=== PATIENT | male | born 1960 | race Caucasian/White ===

== ENCOUNTER 2016-06-12 13:54 | Emergency (ER) | payer BC ==
[2016-06-12] MEDS ORDERED: IBUPROFEN 400 MG TABLET PO ONE (14:44)
[2016-06-12] MEDS ORDERED: ACETAMINOPHEN 500 MG TABLET PO ONE (14:44)
--- NOTE | 2016-06-12 14:48 | Emergency Department Record ---
History of Present Illness - General Chief Complaint: Fever Stated Complaint: FEVER Time Seen by Provider: 06/12/16 14:44 Source: Patient Mode of Arrival: Ambulatory Limitations: No limitations - History of Present Illness Initial Comments: 56 yo male presents to ED with a CC of sore throat and fever symptoms associated with body aches and headache symptoms. Patient denies difficulty breathing, abdominal pain, nausea, vomiting, or neck pain symptoms. Patient denies urinary symptoms. Patient denies health problems at his baseline. MD Complaint: Fever Onset/Timin -: Days(s) Temperature Source: Oral Associated Symptoms: Myalgias, Sore throat Treatments Prior to Arrival: Other (excedrin) - Related Data Home Medications Medication Instructions Recorded Confirmed Last Taken Aspirin [Aspir 81] 81 mg PO QD tab 09/18/15 06/12/16 1 Day Ago Fenofibrate Nanocrystallized 145 mg PO QD tab 09/18/15 06/12/16 1 Day Ago [Tricor] Fluticasone Propionate 16 gm NS DAILY 09/18/15 06/12/16 1 Day Ago Lisinopril [Zestril] 20 mg PO QD tab 09/18/15 06/12/16 1 Day Ago Omeprazole 20 mg PO QD cap 09/18/15 06/12/16 1 Day Ago Atorvastatin Calcium [Lipitor] 20 mg PO DAILY 06/12/16 06/12/16 1 Day Ago Ergocalciferol (Vitamin D2) 50,000 unit PO WEEKLY 06/12/16 06/12/16 1 Day Ago [Vitamin D2] Krill/Om-3/Dha/Epa/Phospho/Ast 1 each PO DAILY 06/12/16 06/12/16 1 Day Ago [Megared [place]-3 Krill Oil Sfgl] Multivitamin [Daily Multiple 1 each PO DAILY 06/12/16 06/12/16 1 Day Ago Vitamin] Previous Rx's Medication Instructions Recorded Amoxicillin [Amoxil] 500 mg PO TID #30 tab 06/12/16 Allergies Allergy/AdvReac Type Severity Reaction Status Date / Time cefadroxil hydrate Allergy Intermediate RASH Verified 06/12/16 14:43 [From [facility]] Travel Screening - Travel/Exposure Within Last 30 Days Have you traveled within the last 30 days?: No - Travel/Exposure Within Last Year Have you traveled outside the [place] in the last year?: No - Additonal Travel Details Have you been exposed to anyone with a communicable illness?: No - Travel Symptoms Symptom Screening: None Review of Systems Constitutional: Reports: Fever, Malaise. Denies: Chills, Night sweats, Weakness Eyes: Denies: Eye discharge, Eye pain ENT: Reports: Throat pain. Denies: Congestion, Ear pain, Epistaxis Respiratory: Denies: Cough, Dyspnea Cardiovascular: Denies: Chest pain, Dyspnea on exertion Endocrine: Denies: Fatigue, Heat or cold intolerance Gastrointestinal: Denies: Abdominal pain, Nausea, Vomiting Genitourinary: Denies: Hematuria, Incontinence, Retention Musculoskeletal: Reports: Myalgia. Denies: Arthralgia, Back pain, Gout, Joint swelling Skin: Denies: Bruising, Change in color Neurological: Reports: Headache. Denies: Abnormal gait, Confusion, Seizure Psychiatric: Denies: Anxiety Hematological/Lymphatic: Reports: Blood Clots. 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 - NEURO Comment:: born deaf, 90% - GI Hx GI Disorders: No - Hx Genitourinary Disorders: No - ENDOCRINE Hx Diabetes: No Hx Thyroid Disease: No - MUSCULOSKELETAL Hx Musculoskeletal Disorders: No - PSYCH Hx Psych Problems: No - HEMATOLOGY/ONCOLOGY Hx Hematology/Oncology Disorders: Yes Family Medical History Any Significant Family History?: Yes Physical Exam - General General Appearance: Alert, Oriented x3, Cooperative, No acute distress, Other ( well appearing on examination) Limitations: No limitations - Head Head exam: Atraumatic, Normocephalic, Normal inspection Head exam detail: negative: Abrasion, Contusion, Walker's sign, General tenderness, Hematoma, Laceration - Eye Eye exam: Normal appearance. negative: Conjunctival injection, Periorbital swelling, Periorbital tenderness, Scleral icterus - ENT Ear exam: negative: Auricular hematoma, Auricular trauma Nasal Exam: negative: Active bleeding, Discharge, Dried blood Mouth exam: negative: Drooling, Laceration, Muffled voice, Tongue elevation Throat exam: Tonsillar erythema. negative: Tonsillomegaly, Tonsillar exudate, R peritonsillar mass, L peritonsillar mass - Neck Neck exam: Normal inspection. negative: Lymphadenopathy, Meningismus - Respiratory Respiratory exam: Normal lung sounds bilaterally. negative: Rales, Respiratory distress, Rhonchi, Stridor - Cardiovascular Cardiovascular Exam: Normal rhythm, Normal heart sounds, Tachycardia - GI/Abdominal GI/Abdominal exam: Soft. negative: Rebound, Rigid, Tenderness - Rectal Rectal exam: Deferred - exam: Deferred - Extremities Extremities exam: Normal inspection. negative: Calf tenderness, Pedal edema, Tenderness - Back Back exam: Denies: CVA tenderness (R), CVA tenderness (L) - Neurological Neurological exam: Alert, Normal gait, Oriented X3 - Psychiatric Psychiatric exam: Normal affect, Normal mood - Skin Skin exam: Normal color. negative: Abrasion Type of lesion: negative: abrasion Course Vital Signs 06/12/16 14:26 Temperature 102.6 F H Pulse Rate [ 116 H Pulse Ox Probe] Respiratory 14 Rate Blood Pressure 164/114 [Left Arm] Pulse Ox 93 L - Reevaluation(s) Reevaluation #1: 06/12/16 15:23 Influenza negative. Strep positive. Reevaluation #2: 06/12/16 16:17 CXR negative. Repeat temperature is down to 98.7, pulse 104, biox 95% RA. Patient was started on amoxicillin for his pharyngitis, and appears stable for discharge at this time. 06/12/16 16:17 Disposition Disposition: Discharge Clinical Impression: Strep pharyngitis Disposition: Home, Self-Care Condition: (2) Stable Instructions: Fever in Adults (ED), Strep Throat (ED) Additional Instructions: Return to ED if your symptoms worsen or if you have any concerns. Amoxicillin as directed. Follow-up with your family doctor in 3-5 days as directed. Prescriptions: Amoxicillin [Amoxil] 500 mg PO TID #30 tab Forms: Patient Portal Access Time of Disposition: 16:18
[2016-06-12 14:49] LABS: STREP A SCREEN POSITIVE (NEGATIVE)
[2016-06-12 15:01] LABS: INFLUENZA A NEGATIVE (NEGATIVE); INFLUENZA B NEGATIVE (NEGATIVE)
[2016-06-12] MEDS ORDERED: AMOXICILLIN 500 MG TABLET PO ONE (15:24)
== END 2016-06-12 16:24 | disposition home or self-care (01) ==
LOC: ER 13:54
DX: J02.0 Streptococcal pharyngitis (principal); R50.81 Fever presenting with conditions classified elsewhere
CPT/HCPCS: 71020; 87400; 87880; 99283

== ENCOUNTER 2016-11-05 11:53 | Emergency (ER) | payer BC ==
[2016-11-05] MEDS ORDERED: ASPIRIN 81 MG CHEWABLE TABLET PO ONE (12:06)
[2016-11-05 12:19] LABS: EOS % 7.1 % (0-6); GRAN % 58.3 % (47-80); HEMATOCRIT 44.9 % (42.0-52.0); HEMOGLOBIN 15.2 gm/dl (14.0-18.0); LYMPH % 21.6 % (16-45); MEAN CORPUSCULAR HEMOGLOBIN 29.1 pg (27-33); MEAN CORPUSCULAR HGB CONC 33.9 g/dl (32-36); MEAN PLATELET VOLUME 10.3 fl (7.4-10.4); PLATELET COUNT 426 K/uL (130-400); RED BLOOD COUNT 5.22 M/uL (4.40-5.70); RED CELL DISTRIBUTION WIDTH 13.2 % (11.5-14.5); WHITE BLOOD COUNT W/O DIFF 7.8 K/uL (4.2-12.2)
[2016-11-05 12:26] LABS: ALB/GLOB RATIO 1.7 (1.1-1.8); ALBUMIN 4.8 gm/dL (3.5-5.0); ALKALINE PHOSPHATASE 60 U/L (38-126); ALT/SGPT 45 U/L (21-72); ANION GAP 11.6 (7-16); AST/SGOT 26 U/L (17-59); BILIRUBIN,TOTAL 1.13 mg/dL (0.2-1.3); BLOOD UREA NITROGEN 19 mg/dL (9-20); CARBON DIOXIDE 25.4 mmol/L (22-30); CREATINE PHOSPHOKINASE 92 U/L (55-170); CREATININE 1.3 mg/dL (0.66-1.25); EST GLOMERULAR FILTRATION RATE > 60 ml/min; GLUCOSE,RANDOM 101 mg/dL (70-110); TOTAL PROTEIN 7.6 gm/dL (6.3-8.2)
[2016-11-05] MEDS: NITROGLYCERIN 0.4MG SL TABLET #25 BTL SL PRN ×3 (12:29→12:47)
[2016-11-05 12:38] LABS: CKMB 0.6 ug/L (0-6)
--- NOTE | 2016-11-05 12:41 | Emergency Department Record ---
History of Present Illness - General Chief Complaint: Chest Pain Stated Complaint: CHEST TIGHTNESS Time Seen by Provider: 11/05/16 11:59 Source: Patient Mode of Arrival: Ambulatory Limitations: No limitations - History of Present Illness Initial Comments: pt pt has had chest tightness for the last week. nothing make it worse or better. no other symptoms Complaint: Chest pain Onset/Timin -: Week(s) Pain Location: Substernal Pain Radiation: None Quality: Tightness Consistency: Intermittent Improves With: Nothing Worsens With: Nothing Treatments Prior to Arrival: None - Related Data Home Medications Medication Instructions Recorded Confirmed Last Taken Aspirin [Aspir 81] 81 mg PO QD tab 09/18/15 11/05/16 1 Day Ago ~06/11/16 Fenofibrate Nanocrystallized 145 mg PO QD tab 09/18/15 11/05/16 1 Day Ago [Tricor] ~06/11/16 Fluticasone Propionate 16 gm NS DAILY 09/18/15 11/05/16 1 Day Ago ~06/11/16 Lisinopril [Zestril] 20 mg PO QD tab 09/18/15 11/05/16 1 Day Ago ~06/11/16 Omeprazole 20 mg PO QD cap 09/18/15 11/05/16 1 Day Ago ~06/11/16 Atorvastatin Calcium [Lipitor] 20 mg PO DAILY 06/12/16 11/05/16 1 Day Ago ~06/11/16 Ergocalciferol (Vitamin D2) 50,000 unit PO WEEKLY 06/12/16 11/05/16 1 Day Ago [Vitamin D2] ~06/11/16 Krill/Om-3/Dha/Epa/Phospho/Ast 1 each PO DAILY 06/12/16 11/05/16 1 Day Ago [Megared [place]-3 Krill Oil Sfgl] ~06/11/16 Multivitamin [Daily Multiple 1 each PO DAILY 06/12/16 11/05/16 1 Day Ago Vitamin] ~06/11/16 Beclomethasone Dipropionate [Qvar 8.7 gm IH DAILY 11/05/16 11/05/16 Unknown 80Mcg/120 Actuat Inhaler] Allergies Allergy/AdvReac Type Severity Reaction Status Date / Time cefadroxil hydrate Allergy Intermediate RASH Verified 06/12/16 14:43 [From [facility]] Travel Screening - Travel/Exposure Within Last 30 Days Have you traveled within the last 30 days?: No Review of Systems Reviewed: No additional complaints except as noted below Constitutional: Reports: As per HPI. Denies: Chills, Fever, Malaise, Night sweats, Weakness, Weight change Eyes: Reports: As per HPI. Denies: Eye discharge, Eye pain, Photophobia, Vision change ENT: Reports: As per HPI. Denies: Congestion, Dental pain, Ear pain, Epistaxis , Hearing loss, Throat pain Respiratory: Reports: As per HPI. Denies: Cough, Dyspnea, Hemoptysis, Stridor, Wheezes Cardiovascular: Reports: As per HPI. Denies: Arrhythmia, Chest pain, Dyspnea on exertion, Edema, Murmurs, Orthopnea, Palpitations, Paroxysmal nocturnal dyspnea, Rheumatic Fever, Syncope Endocrine: Reports: As per HPI. Denies: Fatigue, Heat or cold intolerance, Polydipsia, Polyuria Gastrointestinal: Reports: As per HPI. Denies: Abdominal pain, Constipation, Diarrhea, Hematemesis, Hematochezia, Melena, Nausea, Vomiting Genitourinary: Reports: As per HPI. Denies: Dysuria, Frequency, Hematuria, Incontinence, Retention, Testicular pain, Testicular mass, Urgency Musculoskeletal: Reports: As per HPI. Denies: Arthralgia, Back pain, Gout, Joint swelling, Myalgia, Neck pain Skin: Reports: As per HPI. Denies: Bruising, Change in color, Change in hair/ nails, Lesions, Pruritus, Rash Neurological: Reports: As per HPI. Denies: Abnormal gait, Confusion, Headache, Numbness, Paresthesias, Seizure, Tingling, Tremors, Vertigo, Weakness Psychiatric: Reports: As per HPI. Denies: Anxiety, Auditory hallucinations, Depression, Homicidal thoughts, Suicidal thoughts, Visual hallucinations Hematological/Lymphatic: Reports: As per HPI. Denies: Anemia, Blood Clots, Easy bleeding, Easy bruising, Swollen glands Past Medical History - SOCIAL HISTORY Smoking Status: Never smoker Alcohol Use: Rare Drug Use: None - RESPIRATORY Hx Respiratory Disorders: No - CARDIOVASCULAR Hx Cardio Disorders: Yes Hx Vascular Disease: Yes Comment:: both legs with clots - NEURO Hx Neuro Disorders: Yes Comment:: born deaf, 90% - GI Hx GI Disorders: No - Hx Genitourinary Disorders: No - ENDOCRINE Hx Endocrine Disorders: No Hx Diabetes: No Hx Thyroid Disease: No - MUSCULOSKELETAL Hx Musculoskeletal Disorders: No - PSYCH Hx Psych Problems: No - HEMATOLOGY/ONCOLOGY Hx Hematology/Oncology Disorders: No Family Medical History Any Significant Family History?: No Physical Exam - General General Appearance: Alert, Oriented x3, Cooperative, Mild distress - Head Head exam: Normal inspection - Eye Eye exam: Normal appearance, PERRL, EOMI Pupils: Normal accommodation - ENT ENT exam: Normal exam, Mucous membranes moist, Normal external ear exam, Normal orophraynx Ear exam: Normal external inspection. negative: External canal tenderness Nasal Exam: Normal inspection. negative: Discharge, Sinus tenderness Mouth exam: Normal external inspection, Tongue normal Teeth exam: Normal inspection. negative: Dental caries Throat exam: Normal inspection. negative: Tonsillar erythema, Tonsillar exudate - Neck Neck exam: Normal inspection, Full ROM. negative: Tenderness - Respiratory Respiratory exam: Normal lung sounds bilaterally. negative: Respiratory distress - Cardiovascular Cardiovascular Exam: Regular rate, Normal rhythm, Normal heart sounds - GI/Abdominal GI/Abdominal exam: Soft, Normal bowel sounds. negative: Tenderness - Rectal Rectal exam: Deferred - exam: Deferred - Extremities Extremities exam: Normal inspection, Full ROM, Normal capillary refill. negative: Tenderness - Back Back exam: Reports: Normal inspection, Full ROM. Denies: Muscle spasm, Rash noted, Tenderness - Neurological Neurological exam: Alert, CN II-XII intact, Normal gait, Oriented X3 - Psychiatric Psychiatric exam: Normal affect, Normal mood - Skin Skin exam: Dry, Intact, Normal color, Warm Course Vital Signs 11/05/16 11:57 Pulse Rate 89 Respiratory 20 Rate Blood Pressure 130/96 Pulse Ox 92 L Medical Decision Making - Lab Data Result diagrams: 11/05/16 12:05 11/05/16 12:05 Lab Results 11/05/16 11/05/16 11/05/16 Range/Units 12:05 12:05 12:05 WBC 7.8 (4.2-12.2) K/uL RBC 5.22 (4.40-5.70) M/uL Hgb 15.2 (14.0-18.0) gm/dl Hct 44.9 (42.0-52.0) % MCV 86.0 (81-97) fl MCH 29.1 (27-33) pg MCHC 33.9 (32-36) g/dl RDW 13.2 (11.5-14.5) % Plt Count 426 H (130-400) K/uL MPV 10.3 (7.4-10.4) fl Gran % 58.3 (47-80) % Lymphocytes % 21.6 (16-45) % Monocytes % 12.0 H (0-9) % Eosinophils % 7.1 H (0-6) % Basophils % 1.0 (0-6) % D-Dimer 0.68 H (0-0.59) mg/L FEU Sodium 141 (136-145) mmol/L Potassium 4.2 (3.5-5.1) mmol/L Chloride 104 (98-107) mmol/L Carbon Dioxide 25.4 (22-30) mmol/L Anion Gap 11.6 (7-16) BUN 19 (9-20) mg/dL Creatinine 1.3 H (0.66-1.25) mg/dL Estimated GFR > 60 ml/min Random Glucose 101 (70-110) mg/dL Calcium 9.0 (8.5-10.1) mg/dL Total Bilirubin 1.13 (0.2-1.3) mg/dL AST 26 (17-59) U/L ALT 45 (21-72) U/L Alkaline Phosphatase 60 (38-126) U/L Creatine Kinase 92 (55-170) U/L Total Protein 7.6 (6.3-8.2) gm/dL Albumin 4.8 (3.5-5.0) gm/dL Globulin 2.8 (1.4-4.8) gm/dL Albumin/Globulin Ratio 1.7 (1.1-1.8) Disposition Disposition: Discharge Clinical Impression: Chest tightness Disposition: Home, Self-Care Condition: (1) Good Instructions: Chest Pain (ED) Additional Instructions: follow up with family doctor on tuesday . return sooner if worse Quality - Quality Measures Quality Measures: N/A - Blood Pressure Screening Blood Pressure Classification: Hypertensive Reading Systolic Measurement: 130 Diastolic Measurement: 96 Screening for High Blood Pressure: < Pre-Hypertensive BP, F/U Documented > [ G8950] Pre-Hypertensive Follow-up Interventions: Referral to alternative/primary care provider.
[2016-11-05 12:42] LABS: TROPONIN I < 0.012 ng/mL (0.00-0.034)
--- NOTE | 2016-11-05 14:55 | CT ANGIOGRAM REPORT ---
EXAM: CTA OF THE CHEST HISTORY: CHEST TIGHTNESS. TECHNIQUE: CTA of the chest was performed using pulmonary embolus protocol following IV administration of 100 ml of Omnipaque 350 contrast. Axial images were obtained with coronal and sagittal reconstructions. Comparison: Prior CT chest from 09/03/15. FINDINGS: The visualized thyroid gland enhances normally. The mediastinal vasculature enhances normally. There is no intraluminal filling defect to suggest pulmonary embolus. Negative for thoracic aortic aneurysm or dissection. Cardiomegaly. Limited evaluation of the upper abdomen is unremarkable. The osseous structures are grossly intact. There is no pneumothorax. The visualized airways are patent. Tiny 2 mm ground glass nodule in the anterior right upper lobe, unchanged from the prior exam. No new lung nodules or masses. There are stable nonenlarged right hilar and subcarinal lymph nodes. IMPRESSION: 1. NEGATIVE FOR AN ACUTE INTRATHORACIC PROCESS. 2. STABLE 2 MM GROUND GLASS NODULE IN THE ANTERIOR RIGHT UPPER LOBE. CARDIOMEGALY. JOB NUMBER: [id number] MTDD
[2016-11-05 16:39] LABS: CKMB 0.6 ug/L (0-6)
[2016-11-05 16:42] LABS: TROPONIN I < 0.012 ng/mL (0.00-0.034)
== END 2016-11-05 17:08 | disposition home or self-care (01) ==
LOC: ER 11:53
DX: R07.89 Other chest pain (principal)
CPT/HCPCS: 99284 ×2; 82550; 85025; 82553; 84484; 80053; 85379; 71275; Q9967

== ENCOUNTER 2017-01-30 00:51 | Emergency (ER) | payer BC ==
[2017-01-30] MEDS ORDERED: IPRATROPIUM/ALBUTEROL (0.5MG/3MG) NEB INH ONE (01:00)
--- NOTE | 2017-01-30 01:06 | Emergency Department Record ---
History of Present Illness - General Chief complaint: Cold Stated complaint: COUGH Time Seen by Provider: 01/30/17 01:00 Source: Patient Mode of Arrival: Ambulatory Limitations: No limitations - History of Present Illness Initial comments: 56 yo male presents to ED for evaluation of persistent cough symptoms for the past several days. Patient reports that hius was recently diagnosed with pneumonia as well. Patient denies fevers/chills, but does report being prescribed Augmentin 3 days ago that he has been taking but reports that his symptoms have not improved. Patient denies heart or lung problems at his baseline. MD complaint: Other Onset/Timin -: Days(s) Severity: Moderate Consistency: Constant Improves with: None Worsens with: None - Related Data Previous Rx's Medication Instructions Recorded Prednisone [Prednisone 20Mg] 20 mg PO TID #12 tab 01/30/17 Promethazine HCl/Codeine 5 - 10 ml PO .AT BEDTIME PRN #118 01/30/17 [Phenergan W/Codeine] ml Allergies Allergy/AdvReac Type Severity Reaction Status Date / Time cefadroxil hydrate Allergy Intermediate RASH Verified 01/30/17 00:56 [facility] Review of Systems Constitutional: Denies: Chills, Fever, Malaise, Night sweats Eyes: Denies: Eye discharge, Eye pain ENT: Reports: Congestion. Denies: Ear pain, Epistaxis Respiratory: Reports: Cough. Denies: Dyspnea Cardiovascular: Denies: Chest pain, Dyspnea on exertion Endocrine: Denies: Fatigue, Heat or cold intolerance Gastrointestinal: Denies: Abdominal pain, Nausea, Vomiting Genitourinary: Denies: Incontinence, Retention Skin: Denies: Bruising, Change in color, Change in hair/nails Neurological: Denies: Abnormal gait, Confusion, Headache, Tingling Psychiatric: Denies: Anxiety Hematological/Lymphatic: Denies: Anemia, Blood Clots Past Medical History - SOCIAL HISTORY Smoking Status: Never smoker Drug Use: None - RESPIRATORY Hx Respiratory Disorders: No - CARDIOVASCULAR Hx Cardio Disorders: Yes Hx Vascular Disease: Yes Comment:: both legs with clots - NEURO Hx Neuro Disorders: Yes Comment:: born deaf, 90% - GI Hx GI Disorders: No - Hx Genitourinary Disorders: No - ENDOCRINE Hx Endocrine Disorders: No Hx Diabetes: No Hx Thyroid Disease: No - MUSCULOSKELETAL Hx Musculoskeletal Disorders: No - PSYCH Hx Psych Problems: No - HEMATOLOGY/ONCOLOGY Hx Hematology/Oncology Disorders: No Physical Exam - General General Appearance: Alert, Oriented x3, Cooperative Limitations: No limitations - Head Head exam: Atraumatic, Normocephalic, Normal inspection Head exam detail: negative: Abrasion, Contusion, Walker's sign, General tenderness, Hematoma, Laceration - Eye Eye exam: Normal appearance. negative: Conjunctival injection, Periorbital swelling, Periorbital tenderness, Scleral icterus - ENT Ear exam: negative: Auricular hematoma, Auricular trauma Nasal Exam: negative: Active bleeding, Discharge, Dried blood, Foreign body, Sinus tenderness Mouth exam: negative: Drooling, Laceration, Tongue elevation - Neck Neck exam: Normal inspection. negative: Meningismus, Tenderness, Thyromegaly - Respiratory Respiratory exam: Normal lung sounds bilaterally. negative: Respiratory distress, Rhonchi, Stridor, Wheezes - Cardiovascular Cardiovascular Exam: Regular rate, Normal rhythm, Normal heart sounds - GI/Abdominal GI/Abdominal exam: Soft. negative: Organomegaly, Pulsatile mass, Rebound - Rectal Rectal exam: Deferred - exam: Deferred - Extremities Extremities exam: Normal inspection. negative: Pedal edema, Tenderness - Back Back exam: Denies: CVA tenderness (R), CVA tenderness (L) - Neurological Neurological exam: Alert, Normal gait, Oriented X3 - Psychiatric Psychiatric exam: Normal affect, Normal mood - Skin Skin exam: Normal color. negative: Abrasion Type of lesion: negative: abrasion Course - Reevaluation(s) Reevaluation #1: 01/30/17 01:28 CXR: No acute process Patient was updated on radiology results, reports mild improvement following duoneb. Patient's biggest concern is drainage leading to cough symptoms. Will initiate prednisone and phenergan with codeine for likely bronchitis symptoms. Patient agrees with the plan as discussed. Disposition Disposition: Discharge Clinical Impression: Bronchitis Disposition: Home, Self-Care Condition: (2) Stable Instructions: Acute Bronchitis (ED) Additional Instructions: Return to ED if your symptoms worsen or if you have any concerns. Prednisone and phenergan with codeine as directed. Follow-up with your family doctor in 1-3 days as directed. Prescriptions: Prednisone [Prednisone 20Mg] 20 mg PO TID #12 tab Promethazine HCl/Codeine [Phenergan W/Codeine] 5 - 10 ml PO .AT BEDTIME PRN # 118 ml PRN Reason: Cough Forms: Patient Portal Access Time of Disposition: 01:31 Quality - Quality Measures Quality Measures: N/A - Blood Pressure Screening Does Patient Have Any of the Following: No Blood Pressure Classification: Pre-Hypertensive BP Reading Systolic Measurement: 139 Diastolic Measurement: 82 Screening for High Blood Pressure: < Pre-Hypertensive BP, F/U Documented > [ G8950] Pre-Hypertensive Follow-up Interventions: Referral to alternative/primary care provider.
[2017-01-30] MEDS ORDERED: PROMETHAZINE W/CODEINE 10ML UD PO ONE (01:31)
[2017-01-30] MEDS ORDERED: PREDNISONE 20 MG TAB PO ONE (01:31)
--- NOTE | 2017-01-31 13:13 | RADIOLOGY REPORT ---
EXAM: CHEST, TWO VIEWS HISTORY: UNPRODUCTIVE COUGH FOR ELEVEN DAYS. TECHNIQUE: Two views of the chest were obtained. Comparison: 06/12/16. FINDINGS: The heart is not enlarged. There is no mediastinal mass. No acute infiltrate or vascular congestion identified. IMPRESSION: NO ACUTE CARDIAC OR PULMONARY ABNORMALITY IDENTIFIED. JOB NUMBER: [id number] MTDD
== END 2017-01-30 01:44 | disposition home or self-care (01) ==
LOC: ER 00:51
DX: J20.9 Acute bronchitis, unspecified (principal)
CPT/HCPCS: 99283; 99284; 71020; 94640; J7512